=== PATIENT | male | born 1940 | race African-American/Black ===

== ENCOUNTER 2019-03-03 21:51 | Inpatient (IN) | payer MEDICARE, BC ==
[2019-03-03] MEDS ORDERED: Ibuprofen 200 MG TAB ONE (22:10)
--- NOTE | 2019-03-03 22:25 | RAD ---
EXAM: Portable chest PROVIDED CLINICAL HISTORY: Cough COMPARISON: 05/03/2016 FINDINGS: Cardiac and mediastinal silhouette is within normal limits. No focal consolidation, pleural fluid or pneumothorax evident. IMPRESSION: No evidence for an acute cardiopulmonary process.
[2019-03-03 22:43] LABS: Hemoglobin 13.5 g/dL (14.0-18.0); Mean Corpuscular HGB CONC 33.4 g/dL (32.0-36.0); Mean Corpuscular Hemoglobin 31.8 pg (27.0-31.0); Mean Corpuscular Volume 95.3 fL (78.0-98.0); Platelet Count 143 thou/uL (130-400); RBC Distribution Width 12.7 % (11.5-14.5); Red Blood Cell (RBC) Count 4.23 mill/uL (4.70-6.10); White Blood Cell (WBC) Count 5.8 thou/uL (4.8-10.8)
[2019-03-03 22:49] LABS: ALT (SGPT) 11 U/L (8-55); AST (SGOT) 19 U/L (5-34); Alkaline Phosphatase 39 U/L (40-110); Anion Gap 14 mmol/L (10-20); BUN (Urea Nitrogen) 16 mg/dL (8.4-25.7); Bilirubin, Total 0.4 mg/dL (0.2-1.2); Calc. Creatinine Clearance 0 mL/min (70-130); Calcium 8.3 mg/dL (7.8-10.44); Carbon Dioxide 20 mmol/L (23-31); Chloride 103 mmol/L (98-107); Estimated GFR-MDRD 71; Globulin 2.6 g/dL (2.4-3.5); Glucose 96 mg/dL (83-110); Potassium 3.7 mmol/L (3.5-5.1); Protein, Total 6.6 g/dL (5.8-8.1); Sodium 133 mmol/L (136-145)
[2019-03-03 23:01] LABS: Band 2 % (5-11); Hypochromia SLIGHT = 6-15 cells (100X) (0-5/hpf); Lymphocytes 34 % (21-51); MDiff Complete? YES; Monocytes 10 % (0-10); Neutrophil 54 % (42-75); Platelet Morphology Comment Appears Adequate
[2019-03-03 23:11] LABS: CKMB 0.4 ng/mL (0-6.6)
[2019-03-03] MEDS ORDERED: Aspirin Chewable 81 MG TAB ONE (23:15)
[2019-03-03] MEDS ORDERED: Oseltamivir 75 MG CAP PO SCH (23:15)
--- NOTE | 2019-03-03 23:35 | PDOC.HHP ---
Hospitalist HPI - History of Present Illness Fever, weakness History of Present Illness: Patient is an 78 year old male with PMH pituitary tumor (removed), hypothyroidism, asthma who presented to ED for nausea, fever, malaise, cough. Patient was in normal state of health until he developed cold symptoms on Friday , was improving until yesterday, however he began coughing severely, didnt sleep all night, wasnt eating, began to vomit a lot. Held down water but no food. In ED found to have a fever to 103F (got IV tylenol by EMS). Vitals otherwise stable. Influenza screen positive for Flu B. Troponin mildly elevated to 0.031. CXR without acute findings. Sound hospitalists consulted for admission. Of note patient had history of pituitary surgery and takes synthroid and hydrocortisone at home. Patient has not had flu shot. Hospitalist ROS - Review of Systems Constitutional: reports: fever, chills, weakness, malaise Eyes: denies: pain, vision change, conjunctivae inflammation, eyelid inflammation, redness, other ENT: reports: nose congestion, throat pain. denies: ear pain, ear discharge, nose pain, nose discharge, mouth pain, mouth swelling, throat swelling, other Respiratory: reports: cough, sputum. denies: dry, shortness of breath, hemoptysis, SOB with excertion, pleuritic pain, wheezing, other Cardiovascular: denies: chest pain, palpitations, orthopnea, paroxysmal noc. dyspnea, edema, light headedness, other Gastrointestinal: reports: nausea, vomiting Genitourinary: denies: dysuria, frequency, incontinence, hematuria, retention, other Musculoskeletal: denies: neck pain, shoulder pain, arm pain, back pain, hand pain, leg pain, foot pain, other Skin: denies: rash, lesions, diego, bruising, other Neurological: denies: weakness, numbness, incoordination, change in speech, confusion, seizures, other All other systems reviewed; all pertinent +/- noted in HPI/Subj Hospitalist History - Past Medical History Other Medical History: hypothyroidism pituitary tumor asthma - Past Surgical History Other Surgical History: PITUITARY TUMOR REMOVAL X 2, EAR SURGERY - Family History Family History: reports: no pertinent history - Social History Smoking Status: Never smoker Alcohol: reports: None Drugs: reports: none - Exam General Appearance: NAD, awake alert Eye: PERRL, anicteric sclera ENT: normocephalic atraumatic, no oropharyngeal lesions, moist mucosa Neck: supple, symmetric, no JVD, no thyromegaly, no lymphadenopathy, no carotid bruit Heart: RRR, no murmur, no gallops, no rubs, normal peripheral pulses Respiratory - other findings: diffuse wheezes Gastrointestinal: soft, non-tender, non-distended, normal bowel sounds, no palpable masses, no hepatomegaly, no splenomegaly, no bruit Extremities: no cyanosis, no clubbing, no edema Skin: normal turgor, no lesions, no rashes Neurological: cranial nerve grossly intact, normal sensation to touch, no weakness, no focal deficits, no new deficit Musculoskeletal: normal tone, normal strength, no muscle wasting Psychiatric: normal affect, normal behavior, A&O x 3 Hospitalist Results - Labs Result Diagrams: 03/03/19 22:19 03/03/19 22:19 Lab results: WBC 5.8 thou/uL (4.8-10.8) 03/03/19 22:19 Hgb 13.5 g/dL (14.0-18.0) L 03/03/19 22:19 Hct 40.3 % (42.0-52.0) L 03/03/19 22:19 MCV 95.3 fL (78.0-98.0) 03/03/19 22:19 Plt Count 143 thou/uL (130-400) 03/03/19 22:19 Band Neuts % (Manual) 2 % (5-11) L 03/03/19 22:19 Sodium 133 mmol/L (136-145) L 03/03/19 22:19 Potassium 3.7 mmol/L (3.5-5.1) 03/03/19 22:19 Chloride 103 mmol/L (98-107) 03/03/19 22:19 Carbon Dioxide 20 mmol/L (23-31) L 03/03/19 22:19 BUN 16 mg/dL (8.4-25.7) 03/03/19 22:19 Creatinine 1.20 mg/dL (0.7-1.3) 03/03/19 22:19 Glucose 96 mg/dL (83-110) 03/03/19 22:19 Lactic Acid 0.8 mmol/L (0.5-2.2) 03/03/19 22:19 Calcium 8.3 mg/dL (7.8-10.44) 03/03/19 22:19 Total Bilirubin 0.4 mg/dL (0.2-1.2) 03/03/19 22:19 AST 19 U/L (5-34) 03/03/19 22:19 ALT 11 U/L (8-55) 03/03/19 22:19 Alkaline Phosphatase 39 U/L (40-110) L 03/03/19 22:19 CK-MB (CK-2) 0.4 ng/mL (0-6.6) 03/03/19 22:19 Troponin I 0.031 ng/mL (< 0.028) H 03/03/19 22:19 Serum Total Protein 6.6 g/dL (5.8-8.1) 03/03/19 22:19 Albumin 4.0 g/dL (3.4-4.8) 03/03/19 22:19 Additional comment: BP: 119/55 MAP: 76 Pulse: 72 Resp: 18 Temp: 99.7 (Oral) Pain: 0 O2 sat: 96 on (Room Air) Time: 03/03/2019 23:55. EKG reviewed Hospitalist H&P A/P - Plan Plan: Patient is an 78 year old male with PMH pituitary tumor (removed), hypothyroidism, asthma who presented to ED for nausea, fever, malaise, cough. # influenza B infection - admit to floor - start tamiflu - monitor for secondary infection, supportive care - IVF, continue until eating # asthma w/ exacerbation - on chronic steroids, has wheezing currently, increase to solu medrol and follow clinically - scheduled + PRN duonebs, no inhalers at home as far as I am aware # history of pituitary disease and surgery with hypothyroidism, chronic adrenal insufficiency - continue synthroid, check TSH - management of steroids as above, wean to PO hydrocortisone before discharge # disposition - given acute weakness, will consult PT/OT and case management in case SNF needed
[2019-03-03] MEDS ORDERED: Ondansetron PF 4 MG/2 ML Vial ONE (23:51)
[2019-03-04] MEDS ORDERED: Promethazine HCl 12.5 MG in Sodium Chloride 0.9% 50 ML IVPB PRN (00:03)
[2019-03-04] MEDS ORDERED: Ondansetron PF 4 MG/2 ML Vial IVP PRN (00:03)
[2019-03-04] MEDS ORDERED: cloNIDine 0.1 MG TAB PO PRN (00:03)
[2019-03-04] MEDS ORDERED: hydrALAZINE 20 MG/ML VIAL SLOW IVP PRN (00:03)
[2019-03-04] MEDS ORDERED: Morphine 2 MG/ML SYRINGE SLOW IVP PRN (00:06)
[2019-03-04] MEDS ORDERED: Loperamide HCl 2 MG CAP PO PRN (00:12)
[2019-03-04] MEDS ORDERED: Acetaminophen 325 MG TAB PO PRN (00:12)
[2019-03-04] MEDS ORDERED: Bisacodyl 10 MG SUPP PR PRN (00:12)
[2019-03-04] MEDS ORDERED: Bisacodyl 5 MG TAB PO PRN (00:12)
[2019-03-04] MEDS ORDERED: HYDROcodone/Acetaminophen 5/325 mg Tablet PO PRN (00:12)
[2019-03-04] MEDS ORDERED: Bacteriostatic Water 30 ML VIAL FS PRN (00:21)
[2019-03-04] MEDS ORDERED: HYDROcodone/Chlorphen Polis 5 ML UDCUP PO PRN (00:26)
[2019-03-04] MEDS ORDERED: Sodium Chloride 0.9% 1,000 ML IV SCH (00:45)
[2019-03-04] MEDS ORDERED: methylPREDNISolone Sod Succ/PF 125 MG/2 ML VIAL ONE (01:16)
[2019-03-04] MEDS: methylPREDNISolone Sod Succ/PF 125 MG/2 ML VIAL IVP SCH ×2 (01:23→10:12)
[2019-03-04 04:42] LABS: Troponin I Less than 0.010 ng/mL (< 0.028)
[2019-03-04 04:57] LABS: Free T4 (Free Thyroxine) 1.01 ng/dL (0.70-1.48)
[2019-03-04 05:52] LABS: Bilirubin Negative (Negative); Blood, Urine Negative (Negative); Clarity Clear (Clear); Glucose, Urine (Dipstick) Normal (Negative); Leukocyte Negative Leu/uL (Negative); Nitrite Negative (Negative); Protein, Urine (Dipstick) Negative (Neg-Trace); Urobilinogen Normal mg/dL (Less than 2)
[2019-03-04] MEDS ORDERED: Levothyroxine Sodium 100 MCG TAB PO SCH (06:00)
[2019-03-04] MEDS ORDERED: Aspirin 325 MG TAB PO SCH (08:00)
[2019-03-04] MEDS ORDERED: predniSONE 20 MG TAB PO SCH (08:00)
[2019-03-04] MEDS ORDERED: Polyethylene Glycol 3350 17 GM Packet PO SCH (09:00)
[2019-03-04] MEDS ORDERED: Enoxaparin Sodium 40 MG/0.4 ML SYRINGE SC SCH (09:00)
[2019-03-04] MEDS ORDERED: Oseltamivir 75 MG CAP PO SCH (09:00)
[2019-03-04 10:39] LABS: Troponin I Less than 0.010 ng/mL (< 0.028)
--- NOTE | 2019-03-04 12:50 | PDOC.HOSPP ---
- Subjective Encounter Date: 03/04/19 Encounter Time: 12:48 Subjective: Mr. Caban was seen today in follow-up of influenza B. He says he is feeling better. He denies shortness of breath, no nausea or vomiting. - Objective Vital Signs & Weight: Vital Signs (12 hours) Temp Pulse Resp BP Pulse Ox 03/04/19 08:28 98 F 62 24 H 127/73 93 L 03/04/19 07:06 98 19 97 03/04/19 01:34 63 16 96 Result Diagrams: 03/03/19 22:19 03/03/19 22:19 Hospitalist ROS - Medication Medications: Active Medications Generic Name Dose Route Start Last Admin Trade Name Freq PRN Reason Stop Dose Admin Albuterol/Ipratropium 3 ml 03/04/19 01:00 03/04/19 07:06 Duoneb NEB 3 ml [id number] LAZARUS Administration Aspirin 325 mg 03/04/19 08:00 03/04/19 10:12 Aspirin PO 325 mg QAM-WM LAZARUS Administration Enoxaparin Sodium 40 mg 03/04/19 09:00 03/04/19 10:12 Lovenox SC 40 mg 0900 LAZARUS Administration Sodium Chloride 1,000 mls @ 75 mls/hr 03/04/19 00:45 03/04/19 01:23 Normal Saline 0.9% IV 03/05/19 16:44 1,000 mls .[id number] LAZARUS Administration Levothyroxine Sodium 100 mcg 03/04/19 06:00 03/04/19 06:05 Synthroid PO 100 mcg 0600 LAZARUS Administration Methylprednisolone Sodium Succinate 60 mg 03/04/19 01:00 03/04/19 10:12 Solu-Medrol IVP 60 mg 0100,0900,1700 LAZARUS Administration Oseltamivir Phosphate 75 mg 03/04/19 09:00 03/04/19 10:12 Tamiflu PO 03/08/19 09:01 75 mg BID LAZARUS Administration Pantoprazole Sodium 40 mg 03/04/19 09:00 03/04/19 10:12 Protonix PO 40 mg DAILY LAZARUS Administration Polyethylene Glycol 17 gm 03/04/19 09:00 03/04/19 10:12 Miralax PO Not Given DAILY LAZARUS - Exam Eye: PERRL Heart: RRR, no murmur, no gallops, no rubs, normal peripheral pulses Respiratory: CTAB, no wheezes, no rales, no ronchi, normal chest expansion, no tachypnea Gastrointestinal: soft, non-tender, non-distended, normal bowel sounds, no palpable masses, no hepatomegaly, no splenomegaly Extremities: no cyanosis, no clubbing, no edema Hosp A/P (1) Influenza B Code(s): J10.1 - FLU DUE TO OTH IDENT INFLUENZA VIRUS W OTH RESP MANIFEST Status: Acute (2) Asthma Code(s): J45.909 - UNSPECIFIED ASTHMA, UNCOMPLICATED Status: Chronic (3) Hypothyroidism Code(s): E03.9 - HYPOTHYROIDISM, UNSPECIFIED Status: Chronic - Plan * Influenza B- he is improving. He says the nausea has improved, and he wants to try something to eat * Asthma- stable- no wheezing on exam, his oxygen saturations are good on room, air, and he has no respiratory complaints * Temperature is normal * Will monitor hm a little longer, and see if he can eat, and keep food down, if so he can be discharged home on Tamiflu
[2019-03-04 13:39] VITALS: BP 147/78; TEMP 98.4
--- NOTE | 2019-03-05 09:42 | DIS ---
DATE OF ADMISSION: 03/04/2019 DATE OF DISCHARGE: 03/04/2019 DISCHARGE DISPOSITION: Home. DISCHARGE DIAGNOSES: 1. Influenza B infection. 2. Hypothyroidism. 3. History of pituitary tumor. 4. Asthma. DISCHARGE MEDICATIONS: Include, 1. Tamiflu 75 mg p.o. twice daily for 4 more days. 2. Levothyroxine 100 mg p.o. daily. 3. Hydrocortisone 20 mg daily and 10 mg at bedtime. 4. Zetia 10 mg q.p.m. 5. Nexium 40 mg daily. 6. Dorzolamide drops. 7. Alendronate 70 mg once weekly. CODE STATUS: Full code. ALLERGIES: TO IODINE. HOSPITAL COURSE: Mr. Caban is a pleasant 78-year-old gentleman, who presented to the emergency room with high fever, nausea, and vomiting as well as cough and congestion. The patient was admitted through the emergency room. He was found to have influenza B. He was monitored. The patient was placed on IV fluids as well as antiemetics and had improved overnight. The following day, he had defervesced, he has been afebrile, tolerating p.o. and had no respiratory symptoms and as such, he will be discharged home to continue his course of Tamiflu and follow up with his primary care physician in 1 to 2 weeks. Job ID: [id number]
--- NOTE | 2019-03-08 20:50 | PQF ---
ANA MANZANARES TONI MD [id number] MALENA BHARDWAJ [id number] CLINICAL DOCUMENTATION CLARIFICATION FORM: POST DISCHARGE Addendum to original discharge summary date: ____ Late entry note date: __ DATE: 03/08/19 ATTN: Pedro Chino Please exercise your independent, professional judgment in responding to the clarification form. Clinical indicators are provided on the bottom of this form for your review Please check appropriate box(s) to clarify if the following diagnosis has been ruled in or ruled out: Asthma Exacerbation [ XX ] Yes [ ] No [ ] Unable to determine For continuity of documentation, please document condition throughout progress notes and discharge summary. Thank You. CLINICAL INDICATORS - SIGNS / SYMPTOMS / LABS Vital Sign 03/04/19 Temp 98F, Pulse 98, Resp rate 24, O2 Sat 93% Hospitalist H&P p1 03/03/19 Dr Cao develop cold symptoms on Friday, was improving until yesterday, however began coughing severely Hospitalist H&P p1 03/03/19 Dr Cao reports fever, chills, weakness and malaise Hospitalist H&P p4 03/03/19 Dr Cao on chronic steroids, has wheezing, increased to solu medrol and follow clinically RISK FACTORS Hospitalist H&P p4 03/03/19 Influenza B infection Hospitalist H&P p4 03/03/19 Asthma Exacerbation TREATMENTS MAY 01 Tamiflu MAY 01 Steroid MAY 01 Robyn (This form is maintained as a part of the permanent medical record) 2014 [employer]. All Rights Reserved [email or web address] [not provided] [email or web address]
== END 2019-03-04 15:52 | disposition home or self-care (01) | DRG 195 ==
LOC: ERS 21:51 → ERHOLD 23:32 → OBSVTOIN 03-04 01:03
PROVIDERS: ADMIT Internal Medicine; ATTEND Internal Medicine
DX: J10.1 Influenza due to other identified influenza virus with other respiratory manifestations (principal); E03.9 Hypothyroidism, unspecified; J45.909 Unspecified asthma, uncomplicated; R79.89 Other specified abnormal findings of blood chemistry; Z79.899 Other long term (current) drug therapy; Z79.890 Hormone replacement therapy; Z86.018 Personal history of other benign neoplasm
CPT/HCPCS: 36415; 36416; 71045; 80053; 81003; 82553; 83605; 84439; 84443; 84484; 85025; 87040; 87804; 93005; 94640; 96361; 96374; J1650; J2405; J2930; J7620

== ENCOUNTER 2023-08-07 14:03 | Outpatient (CLI) | payer MEDICARE | END 2023-08-07 14:04 | disposition home or self-care (01) | LOC: BICMAMMO 14:03 | PROVIDERS: ATTEND Nurse Practitioner Acute Care | DX: Z13.820 Encounter for screening for osteoporosis (principal); M85.88 Other specified disorders of bone density and structure, other site | CPT/HCPCS: 77080 ==

== ENCOUNTER 2023-10-31 07:35 | Emergency (ER) | payer MEDICARE ==
[2023-10-31] MEDS ORDERED: Acetaminophen 325 MG TAB ONE (08:06)
[2023-10-31 08:26] LABS: #Basophils Less than 0.03 10x3/uL (0.0-0.2); %Basophils 0.1 % (0.0-1.0); %Eosinophils 1.8 % (0.0-10.0); %Lymphocytes 18.1 % (21.0-51.0); %Monocytes 15.9 % (0.0-10.0); %Neutrophils 63.7 % (42.0-75.0); Hematocrit 38.6 % (42.0-52.0); Hemoglobin 13.3 g/dL (14.0-18.0); Mean Corpuscular HGB CONC 34.5 g/dL (32.0-36.0); Mean Corpuscular Hemoglobin 32.4 pg (27.0-31.0); Mean Corpuscular Volume 94.1 fL (78.0-98.0); Mean Platelet Volume 9.4 fL (7.4-10.4); Platelet Count 196 10x3/uL (130-400); RBC Distribution Width 13.8 % (11.5-14.5)
[2023-10-31 08:54] LABS: ALT (SGPT) 14 U/L (8-55); AST (SGOT) 20 U/L (5-34); Albumin 3.9 g/dL (3.4-4.8); Alkaline Phosphatase 32 U/L (40-110); Anion Gap 12 mmol/L (10-20); BUN (Urea Nitrogen) 14 mg/dL (8.4-25.7); Bilirubin, Total 0.6 mg/dL (0.2-1.2); Calc. Creatinine Clearance 0 mL/min (70-130); Calcium 9.1 mg/dL (7.8-10.44); Carbon Dioxide 25 mmol/L (23-31); Chloride 105 mmol/L (98-107); Estimated GFR 64; Globulin 2.9 g/dL (2.4-3.5); Glucose 94 mg/dL (83-110); Potassium 4.2 mmol/L (3.5-5.1); Protein, Total 6.8 g/dL (5.8-8.1); Sodium 138 mmol/L (136-145)
[2023-10-31 09:40] LABS: Bacteria/HPF None Seen HPF (None Seen); Bilirubin Negative (Negative); Blood, Urine Negative (Negative); CAUTI Indications for Culture Alt mental st,lethar; Clarity Clear (Clear); Glucose, Urine (Dipstick) Normal (Negative); Ketone, Urine Negative (Negative); Leukocyte Negative Leu/uL (Negative); Nitrite Negative (Negative); Protein, Urine (Dipstick) 10 mg/dL (Neg-Trace); RBC/HPF None Seen HPF (0-3); Specific Gravity, Urine 1.018 (1.002-1.036); Squamous Epithelial None Seen HPF (0-3); Urobilinogen Normal mg/dL (Less than 2); WBC/HPF 0-3 HPF (0-3)
[2023-10-31 09:43] LABS: Urine Culture Reflex No No
[2023-10-31 09:44] LABS: Influenza A by NAA Not Detected (NotDetected); Influenza B by NAA Not Detected (NotDetected); SARS-CoV-2 NAA Rapid Test DETECTED (NotDetected)
[2023-10-31 10:30] LABS: Troponin I 0.015 ng/mL (< 0.028)
== END 2023-10-31 11:55 | disposition home or self-care (01) ==
LOC: ERS 07:35
DX: S01.112A Laceration without foreign body of left eyelid and periocular area, initial encounter (principal); U07.1 COVID-19; E03.9 Hypothyroidism, unspecified; W06.XXXA Fall from bed, initial encounter; Y93.89 Activity, other specified; Y92.099 Unspecified place in other non-institutional residence as the place of occurrence of the external cause; Z79.899 Other long term (current) drug therapy
CPT/HCPCS: 0240U; 70450; 71045; 80053; 81001; 82550; 84484; 85025; 93005; 36415

== ENCOUNTER 2025-01-19 07:21 | Inpatient (IN) | payer MEDICARE ==
[2025-01-19 08:00] LABS: #Basophils Less than 0.03 10x3/uL (0.0-0.2); #Eosinophils 0.06 10x3/uL (0.0-0.7); #Monocytes 0.22 10x3/uL (0.11-0.59); #Neutrophils 2.06 10x3/uL (1.40-6.50); %Basophils 0.5 % (0.0-1.0); %Eosinophils 1.5 % (0.0-10.0); %Lymphocytes 39.3 % (21.0-51.0); %Monocytes 5.6 % (0.0-10.0); %Neutrophils 52.6 % (42.0-75.0); Hematocrit 45.3 % (42.0-52.0); Hemoglobin 15.1 g/dL (14.0-18.0); Mean Corpuscular Hemoglobin 31.3 pg (27.0-31.0); Mean Corpuscular Volume 94.0 fL (78.0-98.0); Platelet Count 130 10x3/uL (130-400); Red Blood Cell (RBC) Count 4.82 mill/uL (4.70-6.10); White Blood Cell (WBC) Count 3.92 10x3/uL (4.8-10.8)
[2025-01-19 08:14] LABS: AST (SGOT) Greater than 4001 U/L (11-34); Albumin 4.4 g/dL (3.1-4.5); Alkaline Phosphatase 63 U/L (40-110); Anion Gap 16 mmol/L (10-20); BUN (Urea Nitrogen) 24 mg/dL (8.4-25.7); Bilirubin, Total 1.0 mg/dL (0.3-1.2); Calc. Creatinine Clearance 0 mL/min (70-130); Calcium 9.1 mg/dL (7.8-10.44); Carbon Dioxide 21 mmol/L (23-31); Chloride 104 mmol/L (98-107); Globulin 3.1 g/dL (2.4-3.5); Glucose 69 mg/dL (83-110); Potassium 4.3 mmol/L (3.5-5.1); Sodium 137 mmol/L (136-145)
[2025-01-19 08:21] LABS: ALT (SGPT) 3553 U/L (Less than 45)
[2025-01-19] MEDS ORDERED: diphenhydrAMINE 50 MG/ML VIAL ONE (08:57)
[2025-01-19] MEDS ORDERED: Famotidine/PF 20 mg/2ml Vial ONE (08:58)
[2025-01-19 10:11] LABS: #Basophils Less than 0.03 10x3/uL (0.0-0.2); #Eosinophils 0.05 10x3/uL (0.0-0.7); #Monocytes 0.58 10x3/uL (0.11-0.59); #Neutrophils 4.00 10x3/uL (1.40-6.50); %Basophils 0.4 % (0.0-1.0); %Eosinophils 0.9 % (0.0-10.0); %Lymphocytes 17.7 % (21.0-51.0); %Monocytes 10.2 % (0.0-10.0); %Neutrophils 69.9 % (42.0-75.0); Hematocrit 39.6 % (42.0-52.0); Hemoglobin 13.2 g/dL (14.0-18.0); Mean Corpuscular Hemoglobin 31.3 pg (27.0-31.0); Mean Corpuscular Volume 93.8 fL (78.0-98.0); Platelet Count 111 10x3/uL (130-400); Red Blood Cell (RBC) Count 4.22 mill/uL (4.70-6.10); White Blood Cell (WBC) Count 5.71 10x3/uL (4.8-10.8)
[2025-01-19 10:19] LABS: ALT (SGPT) 2862 U/L (Less than 45); AST (SGOT) 3601 U/L (11-34); Albumin 3.7 g/dL (3.1-4.5); Alkaline Phosphatase 54 U/L (40-110); Anion Gap 14 mmol/L (10-20); BUN (Urea Nitrogen) 23 mg/dL (8.4-25.7); Bilirubin, Total 0.9 mg/dL (0.3-1.2); Calc. Creatinine Clearance 0 mL/min (70-130); Calcium 8.2 mg/dL (7.8-10.44); Carbon Dioxide 19 mmol/L (23-31); Chloride 109 mmol/L (98-107); Globulin 2.5 g/dL (2.4-3.5); Glucose 62 mg/dL (83-110); Lipase 27 U/L (8-78); Potassium 4.2 mmol/L (3.5-5.1); Sodium 138 mmol/L (136-145)
[2025-01-19] MEDS ORDERED: Ondansetron PF 4 MG/2 ML Vial ONE (10:31)
[2025-01-19 11:07] LABS: Bacteria/HPF None Seen HPF (None Seen); CAUTI Indications for Culture Alt mental st,lethar; Glucose, Urine (Dipstick) Normal (Negative); Leukocyte Negative Leu/uL (Negative); Protein, Urine (Dipstick) 70 mg/dL (Neg-Trace); Specific Gravity, Urine 1.022 (1.002-1.036); WBC/HPF 0-3 HPF (0-3)
[2025-01-19 11:11] LABS: Cocaine Metabolite Screen Negative (Negative); THC/Cannabinoid Screen Negative (Negative); Tricyclic Screen Negative (Negative)
[2025-01-19 11:13] LABS: Urine Culture Reflex No No
[2025-01-19 13:37] LABS: Hep A IgM AB NONREACTIVE (NonReactive); Hep A IgM S/CO 0.19 S/CO (0-0.79); Hep B Core IgM Index 0.08 S/CO (0-0.79); Hep B Surf Ag NONREACTIVE S/CO (NonReactive); Hep C IgG Ab NONREACTIVE S/CO (NonReactive); Hep C Index 0.28 S/CO (0-0.79)
[2025-01-19 14:25] LABS: Acetaminophen Less than 10 mcg/mL (Less than 10); Salicylate Less than 8.0 mg/dL (Less than 8.0)
[2025-01-19 15:16] VITALS: BMI 24.5
[2025-01-20 05:04] LABS: #Basophils Less than 0.03 10x3/uL (0.0-0.2); #Eosinophils 0.03 10x3/uL (0.0-0.7); #Monocytes 0.46 10x3/uL (0.11-0.59); #Neutrophils 1.31 10x3/uL (1.40-6.50); %Basophils 0.4 % (0.0-1.0); %Eosinophils 1.1 % (0.0-10.0); %Lymphocytes 32.3 % (21.0-51.0); %Monocytes 17.1 % (0.0-10.0); %Neutrophils 48.7 % (42.0-75.0); Hematocrit 35.6 % (42.0-52.0); Hemoglobin 12.0 g/dL (14.0-18.0); Mean Corpuscular Hemoglobin 31.7 pg (27.0-31.0); Mean Corpuscular Volume 94.2 fL (78.0-98.0); Platelet Count 103 10x3/uL (130-400); Red Blood Cell (RBC) Count 3.78 mill/uL (4.70-6.10); White Blood Cell (WBC) Count 2.69 10x3/uL (4.8-10.8)
[2025-01-20 05:26] LABS: ALT (SGPT) 2538 U/L (Less than 45); AST (SGOT) 2460 U/L (11-34); Albumin 3.3 g/dL (3.1-4.5); Alkaline Phosphatase 58 U/L (40-110); Anion Gap 10 mmol/L (10-20); BUN (Urea Nitrogen) 19 mg/dL (8.4-25.7); Bilirubin, Total 1.1 mg/dL (0.3-1.2); Calc. Creatinine Clearance 47 mL/min (70-130); Calcium 7.7 mg/dL (7.8-10.44); Carbon Dioxide 21 mmol/L (23-31); Chloride 112 mmol/L (98-107); Globulin 2.1 g/dL (2.4-3.5); Glucose 74 mg/dL (83-110); Potassium 4.7 mmol/L (3.5-5.1); Sodium 138 mmol/L (136-145)
[2025-01-20 09:55] VITALS: BMI 24.5
[2025-01-21 05:57] LABS: #Basophils Less than 0.03 10x3/uL (0.0-0.2); #Eosinophils 0.09 10x3/uL (0.0-0.7); #Monocytes 0.56 10x3/uL (0.11-0.59); #Neutrophils 1.21 10x3/uL (1.40-6.50); %Basophils 0.3 % (0.0-1.0); %Eosinophils 2.8 % (0.0-10.0); %Lymphocytes 41.3 % (21.0-51.0); %Monocytes 17.5 % (0.0-10.0); %Neutrophils 37.8 % (42.0-75.0); Hematocrit 34.6 % (42.0-52.0); Hemoglobin 12.0 g/dL (14.0-18.0); Mean Corpuscular Hemoglobin 31.8 pg (27.0-31.0); Mean Corpuscular Volume 91.8 fL (78.0-98.0); Platelet Count 106 10x3/uL (130-400); Red Blood Cell (RBC) Count 3.77 mill/uL (4.70-6.10); White Blood Cell (WBC) Count 3.20 10x3/uL (4.8-10.8)
[2025-01-21 06:04] LABS: ALT (SGPT) 1942 U/L (Less than 45); AST (SGOT) 1453 U/L (11-34); Albumin 3.3 g/dL (3.1-4.5); Alkaline Phosphatase 74 U/L (40-110); Anion Gap 9 mmol/L (10-20); BUN (Urea Nitrogen) 13 mg/dL (8.4-25.7); Bilirubin, Total 1.1 mg/dL (0.3-1.2); Calc. Creatinine Clearance 48 mL/min (70-130); Calcium 7.8 mg/dL (7.8-10.44); Carbon Dioxide 23 mmol/L (23-31); Chloride 111 mmol/L (98-107); Globulin 2.2 g/dL (2.4-3.5); Glucose 83 mg/dL (83-110); Potassium 4.2 mmol/L (3.5-5.1); Sodium 139 mmol/L (136-145)
[2025-01-21] MEDS: Calcium Carbonate 500 MG ChewTAB PO PRN (16:19)
[2025-01-22 06:55] LABS: #Basophils Less than 0.03 10x3/uL (0.0-0.2); #Eosinophils 0.11 10x3/uL (0.0-0.7); #Monocytes 0.65 10x3/uL (0.11-0.59); #Neutrophils 1.78 10x3/uL (1.40-6.50); %Basophils 0.2 % (0.0-1.0); %Eosinophils 2.6 % (0.0-10.0); %Lymphocytes 38.5 % (21.0-51.0); %Monocytes 15.6 % (0.0-10.0); %Neutrophils 42.9 % (42.0-75.0); Hematocrit 35.8 % (42.0-52.0); Hemoglobin 12.0 g/dL (14.0-18.0); Mean Corpuscular Hemoglobin 31.6 pg (27.0-31.0); Mean Corpuscular Volume 94.2 fL (78.0-98.0); Platelet Count 135 10x3/uL (130-400); Red Blood Cell (RBC) Count 3.80 mill/uL (4.70-6.10); White Blood Cell (WBC) Count 4.16 10x3/uL (4.8-10.8)
[2025-01-22 07:02] LABS: ALT (SGPT) 1505 U/L (Less than 45); AST (SGOT) 783 U/L (11-34); Albumin 3.2 g/dL (3.1-4.5); Alkaline Phosphatase 73 U/L (40-110); Anion Gap 10 mmol/L (10-20); BUN (Urea Nitrogen) 11 mg/dL (8.4-25.7); Bilirubin, Total 1.2 mg/dL (0.3-1.2); Calc. Creatinine Clearance 60 mL/min (70-130); Calcium 7.6 mg/dL (7.8-10.44); Carbon Dioxide 22 mmol/L (23-31); Chloride 111 mmol/L (98-107); Globulin 2.1 g/dL (2.4-3.5); Glucose 89 mg/dL (83-110); Potassium 3.9 mmol/L (3.5-5.1); Sodium 139 mmol/L (136-145)
[2025-01-22] MEDS: DorzolamidE/Timolol 2%/0.5% Ophth Soln 10 ml Bottle EA EYE SCH (20:55)
[2025-01-23 06:56] LABS: #Basophils Less than 0.03 10x3/uL (0.0-0.2); #Eosinophils 0.17 10x3/uL (0.0-0.7); #Monocytes 0.80 10x3/uL (0.11-0.59); #Neutrophils 1.92 10x3/uL (1.40-6.50); %Basophils 0.4 % (0.0-1.0); %Eosinophils 3.6 % (0.0-10.0); %Lymphocytes 38.5 % (21.0-51.0); %Monocytes 16.8 % (0.0-10.0); %Neutrophils 40.5 % (42.0-75.0); Hematocrit 34.6 % (42.0-52.0); Hemoglobin 11.9 g/dL (14.0-18.0); Mean Corpuscular Hemoglobin 31.7 pg (27.0-31.0); Mean Corpuscular Volume 92.3 fL (78.0-98.0); Platelet Count 105 10x3/uL (130-400); Red Blood Cell (RBC) Count 3.75 mill/uL (4.70-6.10); White Blood Cell (WBC) Count 4.75 10x3/uL (4.8-10.8)
[2025-01-23 07:08] LABS: ALT (SGPT) 1115 U/L (Less than 45); AST (SGOT) 378 U/L (11-34); Albumin 3.3 g/dL (3.1-4.5); Alkaline Phosphatase 68 U/L (40-110); Anion Gap 10 mmol/L (10-20); BUN (Urea Nitrogen) 9 mg/dL (8.4-25.7); Bilirubin, Total 1.1 mg/dL (0.3-1.2); Calc. Creatinine Clearance 65 mL/min (70-130); Calcium 8.0 mg/dL (7.8-10.44); Carbon Dioxide 23 mmol/L (23-31); Chloride 108 mmol/L (98-107); Globulin 2.2 g/dL (2.4-3.5); Glucose 94 mg/dL (83-110); Potassium 3.7 mmol/L (3.5-5.1); Sodium 137 mmol/L (136-145)
[2025-01-24 05:05] VITALS: TEMP 98.4
[2025-01-24 08:26] VITALS: BP 153/87
[2025-01-24 10:00] LABS: ALT (SGPT) 742 U/L (Less than 45); AST (SGOT) 160 U/L (11-34); Albumin 3.4 g/dL (3.1-4.5); Alkaline Phosphatase 58 U/L (40-110); Bilirubin, Direct 0.5 mg/dL (0.1-0.3); Bilirubin, Total 1.0 mg/dL (0.3-1.2)
== END 2025-01-24 14:40 | disposition home or self-care (01) | DRG 442 ==
LOC: ERS 07:21 → T4-A 12:28
PROVIDERS: ADMIT Internal Medicine; ATTEND Hospitalist
DX: K76.89 Other specified diseases of liver (principal); E27.3 Drug-induced adrenocortical insufficiency; N17.9 Acute kidney failure, unspecified; R74.01 Elevation of levels of liver transaminase levels; E03.9 Hypothyroidism, unspecified; J45.909 Unspecified asthma, uncomplicated; R19.7 Diarrhea, unspecified; Z79.890 Hormone replacement therapy; Z88.8 Allergy status to other drugs, medicaments and biological substances; Z79.899 Other long term (current) drug therapy
CPT/HCPCS: 36415; 51701; 74176; 76705; 80053; 80074; 80076; 80306; 80307; 81001; 82550; 83690; 84439; 84443; 84484; 85025; 87428; 93005; J1200; J1308; J2405; J2919; J7030; Q0162